=== PATIENT | female | born 1975 | race Caucasian/White ===

== ENCOUNTER 2024-05-04 05:59 | Day surgery (SDC) | payer BC, OTHER ==
[2024-05-04] MEDS: Lactated Ringers 1,000 ML IV SCH (06:29)
[2024-05-04] MEDS ORDERED: Xylocaine-Mpf 2% 5 Ml Vial ONE (07:36)
[2024-05-04] MEDS ORDERED: DIPRIVAN 200 MG/20 ML IV ONE ×2 (07:36→07:54)
[2024-05-04] MEDS ORDERED: Versed 2 MG/2 ML Injection ONE (07:36)
[2024-05-04 08:25] VITALS: RESP 16
[2024-05-04 08:34] VITALS: BP 130/91; PULSE 69; TEMP 98.6; O2SAT 97
--- NOTE | 2024-05-05 10:19 | OP ---
SURGERY DATE/TIME: 05/04/2024 8838 - [id number] PREOPERATIVE DIAGNOSIS: Screening exam. POSTOPERATIVE DIAGNOSIS: Normal colon. PROCEDURE: Colonoscopy. SURGEON: Isaiah Robbins MD ANESTHESIA: Medications were given by the anesthesia department. INDICATIONS: The patient is a 48-year-old white female presenting now for screening colonoscopy. The patient was appraised of the risks of the procedure including the risks of perforation, phlebitis, untoward reaction to medication, bleeding, and missed lesions. The patient verbalized her understanding and desired to have the procedure performed. DESCRIPTION OF PROCEDURE AND FINDINGS: Patient was given medication by the anesthesia department. She had continuous pulse oximetry, ECG monitoring, and intermittent blood pressure monitoring during the examination. She was placed in the left lateral decubitus position. Digital rectal examination was performed and revealed normal anal sphincter tone and no masses. The flexible Olympus pediatric colonoscope was used to intubate the rectum. A view of the colon was developed sequentially to the cecum. Upon insertion and withdrawal, including retroflexion in the rectum, no other mucosal lesions were encountered. The scope was removed. The patient tolerated the procedure well and was sent back to outpatient recovery in good condition. The prep was noted to be good.
== END 2024-05-04 08:45 | disposition home or self-care (01) ==
LOC: SDC 05:59
PROVIDERS: ATTEND Family Medicine
DX: Z12.11 Encounter for screening for malignant neoplasm of colon (principal); E11.9 Type 2 diabetes mellitus without complications
CPT/HCPCS: 82947; J2250; J2704